=== PATIENT | female | born 1995 | race Caucasian/White ===

== ENCOUNTER → 2022-01-28 08:49 | Outpatient (CLI) | payer OTHER, SELFPAY ==
[2022-01-29 18:57] LABS: Alanine Aminotransferase 21 IU/L (<35); Albumin 4.1 g/dL (3.5-5.0); Albumin Globulin Ratio 1.6 (1.0-2.8); Alkaline Phosphatase 58 U/L (38-126); Aspartate Aminotransferase 28 IU/L (14-36); BUN Creatinine Ratio 21.3 (6-22); Bilirubin Total 0.3 mg/dL (0.2-1.3); Blood Urea Nitrogen 13 mg/dL (7-17); Calcium 9.3 mg/dL (8.4-10.2); Carbon Dioxide 27 mmol/L (22-32); Chloride 107 mmol/L (98-107); Estimated Glomerular Filt Rate > 60.0 mL/min (>60); Globulin 2.6 g/dL (1.7-4.1); Glucose 88 mg/dL (70-100); HEMOLYSIS < 15 (0-50); Potassium 4.3 mmol/L (3.4-5.1); Sodium 138 mmol/L (137-145); Total Protein 6.7 g/dL (6.3-8.2)
[2022-01-29 18:58] LABS: Hemoglobin A1C% w Est Avg Glu 5.1 % (4.0-6.0)
[2022-01-29 19:02] LABS: Add Manual Diff / Slide Review NO; Basophils Absolute Auto 0 /uL (0-100); Basophils Percent Auto 0.9 % (0-2); Eosinophils Absolute Auto 100 /uL (0-450); Eosinophils Percent Auto 2.6 % (2-4); Hematocrit 41.1 % (36-46); Hemoglobin 13.8 g/dL (12.0-16.0); Lymphocytes Absolute Auto 1700 /uL (1100-4500); Lymphocytes Percent Auto 37.5 % (25-40); Mean Corpuscular HGB Conc 33.6 % (30-36); Mean Corpuscular Hemoglobin 29.7 PG (26-34); Mean Corpuscular Volume 88.2 fL (80-100); Monocytes Absolute Auto 400 /uL (0-900); Monocytes Percent Auto 9.7 % (3-14); Neutrophils Absolute Auto 2200 /uL (1500-7000); Neutrophils Percent Auto 49.3 % (50-75); Platelet Count 193 X10^3/uL (150-400); Red Blood Cell Count 4.66 X10^6/uL (4.0-5.2); Red Cell Distribution Width 13.4 % (11.6-14.8); White Blood Cell Count 4.5 X10^3/uL (4.5-11.0)
[2022-01-29 19:29] LABS: TSH w/ Reflex to FT4 2.37 uIU/mL (0.47-4.68)
== END ==
PROVIDERS: PCP Physician Assistant; Visit Provider Physician Assistant
DX: E28.2 Polycystic ovarian syndrome (principal); F41.9 Anxiety disorder, unspecified; R25.1 Tremor, unspecified; Z87.898 Personal history of other specified conditions
CPT/HCPCS: 80053; 83036; 84443; 85025

== ENCOUNTER → 2022-05-06 08:34 | Outpatient (CLI) | payer OTHER, SELFPAY ==
[2022-05-06 19:40] LABS: Glucose 78 mg/dL (70-100)
[2022-05-06 19:46] LABS: Luteinizing Hormone 46.5 mIU/mL
[2022-05-06 19:58] LABS: Free T4, Direct Thyroxine 0.99 ng/dL (0.78-2.19)
[2022-05-07 12:55] LABS: Insulin Level Total 6.2 uIU/mL (2.6-24.9)
== END ==
PROVIDERS: PCP Physician Assistant; Visit Provider Obstetrics & Gynecology
DX: E28.2 Polycystic ovarian syndrome (principal)
CPT/HCPCS: 82947; 83001; 83002; 83525; 84439

== ENCOUNTER → 2022-08-31 07:00 | Outpatient (CLI) | payer OTHER, SELFPAY ==
[2022-08-31 20:08] LABS: COVID19 - ORCAS (NP or Nasal) Negative (Negative)
== END ==
PROVIDERS: PCP Physician Assistant; Visit Provider Family Medicine
DX: Z20.822 Contact with and (suspected) exposure to COVID-19 (principal); Z01.812 Encounter for preprocedural laboratory examination
CPT/HCPCS: U0003

== ENCOUNTER 2022-09-03 08:36 | Day surgery (SDC) | payer OTHER, SELFPAY ==
[2022-09-02 15:19] VITALS: BMI 20.5
[2022-09-03] VITALS (9 sets, daily range): BP systolic 102–122; BP diastolic 61–80; PULSE 74–102; RESP 11–26; TEMP 36.2–36.7; O2SAT 99–100; BMI 20.5
[2022-09-03] MEDS: LACTATED RINGERS 1,000 ML 100 ML IV (09:17)
--- NOTE | 2022-09-03 12:18 | PM.PREOP ---
Pre-operative Note COVID-19 COVID-19 status: Negative Result date/Date tested (Pos, Neg/Pending): 08/31/22 Criteria for continued procedure: Non-surgical alternatives not available or appropriate per current SOC Interval Note History & Physical reviewed/Exam performed by Physician: Yes Changes to H&P: No H&P completed within 30 days and has changed as indicated here:: 08/27/22
--- NOTE | 2022-09-03 13:26 | SUR.OPER ---
Lithotomy on padded OR bed, head on pillow, arms padded with gel pads and tucked at sides. Legs secured in padded yellow fins stirrups. patient voided prior to entering into OR
[2022-09-03] MEDS: BUPIVACAINE 0.5% W/ EPI (PF) 30 ML VIAL INJ (13:33)
[2022-09-03] MEDS: OXYCODONE/ACETAMINOPHEN 5/325 TABLET 1 TAB PO (14:00)
--- NOTE | 2022-09-03 19:00 | P.OP_ITS ---
Operative Date/Time/Diagnoses Date of procedure: 09/03/22 Time of procedure: 14:00 Pre-op diagnosis: Severe dysmenorrhea Post-op diagnosis: same Procedure & Clinicians Procedure: Procedures Operation Date: 09/03/22 10:15 Actual Procedure Side Surgeon geronimo REMY Laparoscopy and Fulguration of Endometriosis Not Applicable Michaela Coley MD Indications: Severe dysmenorrhea Surgeon: Michaela Coley Anesthesia Type: General and Local Operative Notes Findings: 6 week size anteverted uterus Normal tubes and ovaries bilaterally Normal appendix Normal liver and gallbladder 1 spot of endometriosis in the posterior cul-de-sac on the right side Closure Type: primary Specimen(s): none Estimated blood loss (mL): 5 Blood products transfused: none Procedure in detail: After informed consent was obtained, the patient was taken to the operating room where she was placed in the dorsal supine position. After adequate general endotracheal anesthesia was achieved, she was placed in the dorsal lithotomy position, and prepped and draped in the usual sterile fashion. A time-out was performed. A bivalve speculum was placed into the vagina and the anterior lip of the cervix grasped with a single-tooth tenaculum. An attempt was made to dilate the cervix but was unable to dilate past the # 6 Hegar dilator. A decision was made to place a sponge stick into the vagina. The single-tooth tenaculum was removed from the anterior lip of the cervix. The bivalve speculum was removed from the vagina. Attention was turned to the abdomen where 6 cc of 0.5% Marcaine with epinephrine were injected in the umbilical fold. A 5 mm incision was made. The Veress needle was placed into the peritoneal cavity, and its placement confirmed by aspiration and drop test. The abdominal cavity was insufflated with 3 L of CO2. The Veress needle was removed, and a 5 mm trocar was placed without difficulty. A second incision was made 4 cm lateral to the midline on the left side after 6 cc of 0.5% Marcaine with epinephrine were injected. A second 5 mm trocar was placed under direct visualization. The probe was used to identify both tubes and ovaries which were normal. The appendix was located and was found to be normal. The liver and gallbladder were normal. Both ovarian fossa were examined and were found to be normal. The anterior cul-de-sac was normal. In the posterior cul-de-sac on the patient's right side there was 1 lesion of endometriosis. The spatula cautery was used to cauterize this lesion. The instruments were removed from the abdomen. The CO2 was allowed to escape. The trocars were removed from the abdomen. The incisions were repaired with 4-0 Monocryl in a subcuticular fashion. Steri- Strips and Allevyn dressings were placed. The sponge stick was removed from the vagina. Sponge, lap, and instrument counts were correct x2. The patient tolerated the procedure well, and was taken to PACU in stable condition. Complications: none Post-operative Condition: stable Disposition: PACU Plan for aftercare: Home after recovery
== END 2022-09-03 14:30 | disposition home or self-care (01) ==
PROVIDERS: PCP Physician Assistant; Referring Provider Obstetrics & Gynecology; Visit Provider Obstetrics & Gynecology
PROC: 0U5B4ZZ Destruction of Endometrium, Percutaneous Endoscopic Approach (ICD-10-PCS; CPT 58662; principal; 2022-09-03 10:15)
DX: N80.329 Endometriosis of the posterior cul-de-sac, unspecified depth (principal); F41.9 Anxiety disorder, unspecified
CPT/HCPCS: 58662; 00840; 81025; J1100; J2405; J2704; J3010

== ENCOUNTER → 2022-10-16 12:20 | Outpatient (CLI) | payer OTHER, SELFPAY ==
--- NOTE | 2022-10-16 12:21 | DI.US.S_ITS ---
PROCEDURE: US ABDOMEN LIMITED INDICATIONS: further teri. liver lesion (CT 09/05/22 report in chart) TECHNIQUE: Real-time focused scanning was performed of the abdomen, with image documentation. COMPARISON: None. FINDINGS: Liver measures 15.7 cm. There is a focus of masslike increased echogenicity within the hepatic dome measuring 21 x 18 x 15 mm. No visualized increased vascularity. No priors are available for comparison. IMPRESSION: Hyperechoic focus in the hepatic dome suggestive of hemangioma. Dictated by: Francesca Sampson M.D. on 10/16/2022 at 17:24 Approved by: Francesca Sampson M.D. on 10/16/2022 at 17:24
== END ==
PROVIDERS: PCP Physician Assistant; Referring Provider Physician Assistant; Visit Provider Physician Assistant
DX: K76.9 Liver disease, unspecified (principal)
CPT/HCPCS: 76705